=== PATIENT | male | born 1935 | race Caucasian/White ===

== ENCOUNTER → 2017-11-05 | Outpatient (CLI) | payer OTHER ==
[~2017-11-05] MED LIST: ALLO300T PO; ASPI325T17 PO; CHOL100012 PO; CYAN10005 PO; FELO10TA PO; METF10002 PO; NIVO40VI IV; OMEG300C PO; PIOG30TA23 PO; PIOG30TA4 PO; SLO NIACIN PO; VALS1TAB19 PO; VALS1TAB30 PO
== END | disposition home or self-care (01) ==
LOC: ROC 12:34
PROVIDERS: ATTEND Radiology Radiation Oncology
DX: C43.71 Malignant melanoma of right lower limb, including hip (principal); C79.2 Secondary malignant neoplasm of skin
CPT/HCPCS: 99212; G0463

== ENCOUNTER → 2018-04-06 | Outpatient (CLI) | payer OTHER | LOC: ROC 09:51 | PROVIDERS: ATTEND Radiology Radiation Oncology | DX: Z08 Encounter for follow-up examination after completed treatment for malignant neoplasm (principal); C43.71 Malignant melanoma of right lower limb, including hip | CPT/HCPCS: 99212; G0463 ==

== ENCOUNTER 2018-11-27 07:22 | Outpatient (CLI) | payer MEDICARE | END 2018-11-27 23:59 | disposition home or self-care (01) | LOC: ROC 07:22 | PROVIDERS: ATTEND Radiology Radiation Oncology | DX: Z02.9 Encounter for administrative examinations, unspecified (principal) ==

== ENCOUNTER 2019-01-04 09:38 | Emergency (ER) | payer MEDICARE ==
[~2019-01-04] VITALS: Ht 172.7 cm; Wt 84.0 kg
[~2019-01-04 09:38] MED LIST changes: +CETI10TA3 PO; +METHYLPREDNISOLONE; +YERVOY
--- NOTE | 2019-01-04 10:48 | NUR ---
PT TO ROOM FROM LOBBY
== END 2019-01-04 11:46 | disposition home or self-care (01) ==
LOC: ED 11:40
DX: G89.11 Acute pain due to trauma (principal); M79.671 Pain in right foot; M72.2 Plantar fascial fibromatosis; E11.9 Type 2 diabetes mellitus without complications; I11.9 Hypertensive heart disease without heart failure; W22.8XXA Striking against or struck by other objects, initial encounter; Y93.89 Activity, other specified; Y92.89 Other specified places as the place of occurrence of the external cause; Y99.8 Other external cause status
CPT/HCPCS: 99283